=== PATIENT | female | born 1965 | race Caucasian/White ===

== ENCOUNTER 2023-04-27 15:23 | Emergency (ER) | payer OTHER ==
[~2023-04-27] VITALS: Ht 157.5 cm; Wt 67.1 kg
[2023-04-27] MEDS ORDERED: MORPHINE SULFATE 4 MG/1 ML DISP.SYRIN IM ONE (16:15)
[2023-04-27] MEDS ORDERED: MORPHINE SULFATE 4 MG/1 ML DISP.SYRIN ONE (16:16)
[2023-04-27] MEDS ORDERED: BENAZEPRIL (16:17)
[2023-04-27] MEDS ORDERED: METF-440 PO (16:17)
[2023-04-27] MEDS ORDERED: GLIP5TAB26 PO (16:17)
[2023-04-27] MEDS ORDERED: MORPHINE SULFATE 2 MG/1 ML DISP.SYRIN ONE (16:57)
[2023-04-27] MEDS ORDERED: ONDA4TAB11 PO (18:03)
[2023-04-27] MEDS ORDERED: OXYC5CAP18 PO (18:03)
[2023-04-27] MEDS ORDERED: ONDANSETRON ODT 4 MG TAB.RAPDIS ONE (18:09)
[2023-04-27] MEDS ORDERED: ONDANSETRON ODT 4 MG TAB.RAPDIS SL ONE (18:15)
[2023-04-27 18:17] VITALS: BP 149/86; O2SAT 98
== END 2023-04-27 18:18 | disposition home or self-care (01) ==
LOC: ER 15:23 → EDSEX 15:23 → ER 18:18
DX: S42.202A Unspecified fracture of upper end of left humerus, initial encounter for closed fracture (principal); M25.561 Pain in right knee; E11.9 Type 2 diabetes mellitus without complications; Z88.0 Allergy status to penicillin; Z79.84 Long term (current) use of oral hypoglycemic drugs; Z79.899 Other long term (current) drug therapy; W01.0XXA Fall on same level from slipping, tripping and stumbling without subsequent striking against object, initial encounter; Y93.89 Activity, other specified; Y92.89 Other specified places as the place of occurrence of the external cause; Y99.8 Other external cause status
CPT/HCPCS: 99284; 29105; 73030; 73564; 96372; J2270 ×2; A4663; Q0162